=== PATIENT | female | born 1985 | race Caucasian/White ===

== ENCOUNTER 2016-12-14 15:04 | Emergency (ER) | payer SELFPAY ==
[~2016-12-14] VITALS: Ht 170.2 cm; Wt 130.0 kg
[2016-12-14] MEDS ORDERED: IBUPROFEN 600MG TABLET PO ONE (22:00)
[2016-12-15 00:17] VITALS: BP 138/74
== END 2016-12-15 00:24 | disposition home or self-care (01) ==
LOC: ER 22:47
DX: S92.345A Nondisplaced fracture of fourth metatarsal bone, left foot, initial encounter for closed fracture (principal); J45.909 Unspecified asthma, uncomplicated; F17.210 Nicotine dependence, cigarettes, uncomplicated; Z98.890 Other specified postprocedural states; W06.XXXA Fall from bed, initial encounter; Y93.89 Activity, other specified; Y92.013 Bedroom of single-family (private) house as the place of occurrence of the external cause
CPT/HCPCS: 73610; 73630; 99284; Z7610